=== PATIENT | female | born 1965 | race Caucasian/White ===

== ENCOUNTER 2016-03-01 13:53 | Emergency (ER) | payer OTHER ==
[~2016-03-01] VITALS: Ht 165.1 cm; Wt 117.3 kg
[~2016-03-01 13:53] MED LIST: ALEVE220 MG PO; DILAUDID2 MG PO; FLEXERIL10 MG PO; IBUPROFEN800 MG PO; MOTRIN600 MG PO; MOTRIN800 MG PO; NAPROSYN500 MG PO; NEXIUM40 MG PO; NOHOMEMEDS; OMEPRAZOLE40 M1 PO; PERCOCET 5/31 TABLET PO; RANITIDINE HCL150 MG PO; SIMVASTATIN20 MG PO; ZOFRAN4 MG PO
[2016-03-01 15:40] LABS: BILIRUBIN NEGATIVE; BLOOD NEGATIVE; COLOR YELLOW ((YELLOW)); GLUCOSE (STRIP) NEGATIVE; KETONES NEGATIVE; LEUKOCYTES NEGATIVE; NITRITE NEGATIVE; PH, URINE 7.5 (5-8); PROTEIN (STRIP) NEGATIVE; SPECIFIC GRAVITY 1.024 (1.000-1.030); UROBILINOGEN 0.2 MG/DL (0.2-1.0)
[2016-03-01 15:41] LABS: ADD MIUA? NO; UCUL ADDED? NO
[2016-03-01] MEDS ORDERED: MOBIC7.5 MG PO (17:17)
[2016-03-01] MEDS ORDERED: FLEXERIL10 MG PO (17:17)
[2016-03-01 17:32] VITALS: BP 126/50
== END 2016-03-01 17:33 | disposition home or self-care (01) ==
LOC: EME 13:53 → EXP 13:53
DX: M54.41 Lumbago with sciatica, right side (principal); E78.5 Hyperlipidemia, unspecified; F17.200 Nicotine dependence, unspecified, uncomplicated
CPT/HCPCS: 81003; 99281; 99283

== ENCOUNTER 2016-04-02 23:03 | Emergency (ER) | payer OTHER ==
[~2016-04-02] VITALS: Ht 165.1 cm; Wt 118.2 kg
[~2016-04-02 23:03] MED LIST changes: +MOBIC7.5 MG PO
[2016-04-03] MEDS ORDERED: AZITHROMYCIN250 MG PO (02:45)
[2016-04-03] MEDS ORDERED: VENTOLIN HFA18 GM IH (02:45)
[2016-04-03] MEDS ORDERED: MEDROL DOSEPAK4 MG PO (02:45)
[2016-04-03 02:58] VITALS: BP 145/93
== END 2016-04-03 02:59 | disposition home or self-care (01) ==
LOC: EME 23:03
DX: J20.9 Acute bronchitis, unspecified (principal); F17.200 Nicotine dependence, unspecified, uncomplicated; Z71.6 Tobacco abuse counseling; E78.00 Pure hypercholesterolemia, unspecified
CPT/HCPCS: 71020; 94640; 99281; 99284; J7512

== ENCOUNTER 2016-08-09 20:42 | Emergency (ER) | payer OTHER ==
[~2016-08-09] VITALS: Ht 165.1 cm; Wt 117.2 kg
[~2016-08-09 20:42] MED LIST changes: +AZITHROMYCIN250 MG PO; +MEDROL DOSEPAK4 MG PO; +VENTOLIN HFA18 GM IH
[2016-08-09] MEDS ORDERED: INDOCIN50 MG PO (23:09)
[2016-08-09 23:47] VITALS: BP 127/75
== END 2016-08-09 23:49 | disposition home or self-care (01) ==
LOC: EME 20:42
DX: S40.011A Contusion of right shoulder, initial encounter (principal); W18.2XXA Fall in (into) shower or empty bathtub, initial encounter; E78.5 Hyperlipidemia, unspecified; F17.200 Nicotine dependence, unspecified, uncomplicated
CPT/HCPCS: 73030; 73060; 99281; 99283

== ENCOUNTER 2016-12-15 12:43 | Emergency (ER) | payer OTHER ==
[~2016-12-15] VITALS: Ht 165.1 cm; Wt 118.7 kg
[~2016-12-15 12:43] MED LIST changes: +INDOCIN50 MG PO
[2016-12-15 13:09] VITALS: BP 161/72
[2016-12-15 13:36] LABS: HEMATOCRIT 44.1 % (36.0-46.0); MCH 28.9 PG (29.0-34.0); MCV 90.4 FL (83-99); MEAN PLAT.VOLUME 10.1 uM^3 (9.5-12.4); PLATELET COUNT 246 K/uL (156-360); RBC DIS.WIDTH-CV 12.6 % (11.8-14.6); RBC DIS.WIDTH-SD 41.7 % (39-53); RED BLOOD COUNT 4.88 M/uL (3.80-5.20); WHITE BLOOD COUNT 9.7 K/uL (4.1-10.2)
[2016-12-15 13:48] LABS: CHLORIDE 106 mEq/L (99-109); SODIUM 141 mEq/L (136-147)
[2016-12-15 13:50] LABS: GLUCOSE 110 mg/dL (70-99)
[2016-12-15 13:51] LABS: ANION GAP 11 MEQ/L (2-14)
[2016-12-15 13:53] LABS: GFR ESTIMATE (CALCULATED) > 59 mL/min/
[2016-12-15 13:54] LABS: UREA NITROGEN (BUN) 14 mg/dL (9-23)
[2016-12-15 14:11] LABS: ADD MIUA? YES; BILIRUBIN NEGATIVE; BLOOD MODERATE; COLOR YELLOW ((YELLOW)); GLUCOSE (STRIP) NEGATIVE; KETONES NEGATIVE; LEUKOCYTES NEGATIVE; NITRITE NEGATIVE; PROTEIN (STRIP) NEGATIVE; SPECIFIC GRAVITY 1.018 (1.000-1.030); UROBILINOGEN 0.2 MG/DL (0.2-1.0)
[2016-12-15 14:15] LABS: BACTERIA RARE /HPF; EPITHELIAL CELLS RARE /HPF; MUCUS TRACE /LPF; RED BLOOD CELLS 0-5 /HPF (0-5); UCUL ADDED? NO; WHITE BLOOD CELLS 0-5 /HPF (0-5)
== END 2016-12-15 15:15 | disposition left against medical advice (07) ==
LOC: EME 12:43
DX: R10.2 Pelvic and perineal pain (principal); R31.9 Hematuria, unspecified; E78.5 Hyperlipidemia, unspecified; K21.9 Gastro-esophageal reflux disease without esophagitis; Z87.440 Personal history of urinary (tract) infections; F17.200 Nicotine dependence, unspecified, uncomplicated; Z91.040 Latex allergy status
CPT/HCPCS: 80048; 81003; 85027; 99281; 99283